=== PATIENT | male | born 1990 | race Caucasian/White ===

== ENCOUNTER 2016-04-09 00:44 | Emergency (ER) | payer OTHER ==
[~2016-04-09] VITALS: Ht 172.7 cm; Wt 46.8 kg
[~2016-04-09 00:44] MED LIST: NOHOMEMEDS
[2016-04-09] MEDS ORDERED: AMOXICILLIN875 MG PO (02:03)
[2016-04-09] MEDS ORDERED: NORCO 5/3251 TABLET PO (02:03)
[2016-04-09 02:22] VITALS: BP 126/77
== END 2016-04-09 02:23 | disposition home or self-care (01) ==
LOC: RME 00:44 → EME 00:44 → RME 02:23
DX: K04.7 Periapical abscess without sinus (principal)
CPT/HCPCS: 99281; 99284

== ENCOUNTER → 2016-06-25 | Outpatient (CLI) | payer OTHER ==
[~2016-06-25] MED LIST changes: +AMOXICILLIN875 MG PO; +NORCO 5/3251 TABLET PO
== END | disposition home or self-care (01) ==
LOC: CT 17:45
DX: R06.02 Shortness of breath (principal); R00.0 Tachycardia, unspecified; Z72.0 Tobacco use
CPT/HCPCS: 71275

== ENCOUNTER 2017-08-13 19:22 | Emergency (ER) | payer OTHER ==
[~2017-08-13] VITALS: Ht 172.7 cm; Wt 50.9 kg
[2017-08-13] MEDS ORDERED: MOTRIN800 MG PO (21:01)
[2017-08-13] MEDS ORDERED: PERCOCET 5/31 TABLET PO (21:01)
[2017-08-13 21:33] VITALS: BP 121/78
== END 2017-08-13 21:39 | disposition home or self-care (01) ==
LOC: EME 19:22
DX: S42.021A Displaced fracture of shaft of right clavicle, initial encounter for closed fracture (principal); Y93.61 Activity, american tackle football; F17.200 Nicotine dependence, unspecified, uncomplicated
CPT/HCPCS: 73000; 73030; 99281; 99283

== ENCOUNTER 2017-08-21 10:10 | Day surgery (SDC) | payer OTHER ==
[~2017-08-21] VITALS: Ht 175.3 cm; Wt 50.8 kg
[~2017-08-21 10:10] MED LIST changes: +MOTRIN800 MG PO; +PERCOCET 5/31 TABLET PO
[2017-08-21 10:28] VITALS: BP 143/88
[2017-08-21 15:04] VITALS: BP 116/70
[2017-08-21 15:20] VITALS: BP 120/64
== END 2017-08-21 15:45 | disposition home or self-care (01) ==
LOC: SDC 10:10
PROC: 0PS904Z Reposition Right Clavicle with Internal Fixation Device, Open Approach (ICD-10-PCS; principal; 2017-08-21)
DX: S42.021A Displaced fracture of shaft of right clavicle, initial encounter for closed fracture (principal); W18.30XA Fall on same level, unspecified, initial encounter; Y93.61 Activity, american tackle football; Y92.009 Unspecified place in unspecified non-institutional (private) residence as the place of occurrence of the external cause; F17.200 Nicotine dependence, unspecified, uncomplicated
CPT/HCPCS: 73000; 76000; C1713; J0690; J1100; J2250; J2405; J2795; S0020